=== PATIENT | male | born 1990 | race Caucasian/White ===

== ENCOUNTER 2023-12-18 16:00 | Outpatient (CLI) | payer OTHER | END 2023-12-18 16:01 | disposition home or self-care (01) | LOC: CSHSLEEP 16:00 | PROVIDERS: ATTEND Family Medicine | DX: G47.33 Obstructive sleep apnea (adult) (pediatric) (principal); R53.83 Other fatigue; F41.9 Anxiety disorder, unspecified; E11.9 Type 2 diabetes mellitus without complications; E66.9 Obesity, unspecified; Z68.41 Body mass index [BMI] 40.0-44.9, adult; R06.83 Snoring; G47.00 Insomnia, unspecified | CPT/HCPCS: 95800 ==